=== PATIENT | female | born 1955 | race Caucasian/White ===

== ENCOUNTER 2016-12-14 07:19 | Day surgery (SDC) ==
[2016-12-14] MEDS ORDERED: LR 1,000 ML ONE (07:46)
[2016-12-14] MEDS ORDERED: MYLICON DROPS (DOSE) MISC ONE (10:19)
[2016-12-14] MEDS ORDERED: FENTANYL ONE (11:32)
[2016-12-14] MEDS ORDERED: DIPRIVAN 1% ONE (11:32)
[2016-12-14] MEDS ORDERED: DIPRIVAN 1% 50 ML ONE (11:32)
[2016-12-14 13:54] VITALS: BP 134/82
--- NOTE | 2016-12-14 15:25 | Diag Imaging Result Document ---
PROCEDURE NAME: BARIUM ENEMA - 12/14/2016 SINGLE CONTRAST BARIUM ENEMA: FINDINGS: Barium was administered retrogradely via gravity through balloon-tipped rectal catheter which was inserted by a female technologist. The colon is tortuous, particularly at the sigmoid colon and hepatic flexure regions. There is no stricture identified. There is no intraluminal filling defect identified. There is mild scattered diverticulosis. There is no constricting lesion identified. IMPRESSION: Tortuous colon, particularly at the sigmoid and hepatic flexure regions. Mild scattered diverticulosis. No other visible abnormality.
[2016-12-14] MEDS ORDERED: ZOFRAN ONE (15:32)
[2016-12-14] MEDS ORDERED: XYLOCAINE-MPF 2% ONE (15:32)
--- NOTE | 2016-12-20 03:50 | OPERATIVE NOTE ---
PROCEDURE DATE: 12/14/2016 REFERRING PHYSICIAN: Nikolas Carver MD. INDICATION FOR PROCEDURE: 1. Dysphagia. 2. Epigastric pain. 3. GERD. PROCEDURE PERFORMED: 1. Esophagogastroduodenoscopy with polypectomy. 2. Esophagogastroduodenoscopy with biopsy. CONSENT: Informed consent was obtained from the patient prior to the procedure. The risks, benefits, and alternatives were discussed. MEDICATION: The patient received monitored anesthesia care. PERFORMING PHYSICIAN: Angelia Harrison MD. ASSISTANTS: 1. [facility] 2. Carmela Chou RN. 3. Shilpa Gonzalez RN. 4. Dagmar Lopez CRNA. 5. Severo Castro MD (anesthesia). COMPLICATIONS: There were no complications. ESTIMATED BLOOD LOSS: Less than 1 mL. SPECIMENS REMOVED: 1. Duodenal polyp. 2. Gastric polyp. FINDINGS: After sedation was achieved, the upper endoscope was inserted to the 2nd portion of the duodenum. The hypopharynx appeared normal. The tubular esophagus appeared normal to the distal esophagus. There were no varices. However, there was old blood and an ulcer with a mildly restrictive Schatzki's ring at the GEJ. The GEJ was measured at 35 cm from the incisors. There was a hiatal hernia that spanned from 35-40 cm. In the gastric lumen, there was erosive gastritis. There were multiple polyps in the antrum, fundus, and body. There were at least 2 polyps snared and removed. The smaller polyps remained intact with no stigmata of bleeding. On retroflexed view, there were no gastric varices. The pylorus appeared endoscopically normal. In the duodenal bulb, there was a large duodenal polyp that was biopsied. The remaining mucosa appeared grossly normal. After the exam was complete, the lumen was decompressed and the scope was removed without incident. IMPRESSION: 1. Distal esophagitis. 2. Distal esophageal ulcer. 3. Schatzki's ring. 4. Hiatal hernia. 5. Erosive gastritis. 6. Gastric polyps. 7. Duodenal polyps. RECOMMENDATION: 1. Await biopsy results. 2. Continue Prilosec 40 mg twice a day as well as Pepcid Complete as needed for breakthrough. 3. We will add Carafate 1 g p.o. 4 times a day for 12 weeks. 4. We will have the patient return to clinic in 4-6 weeks. 5. We will proceed with a colonoscopy as previously scheduled.
--- NOTE | 2016-12-20 03:55 | OPERATIVE NOTE ---
PROCEDURE DATE: 12/14/2016 REFERRING PHYSICIAN: Nikolas Carver MD. INDICATION FOR THE PROCEDURE: History of colon polyps. PROCEDURE PERFORMED: Colonoscopy, incomplete, with polypectomy. CONSENT: Informed consent was obtained from the patient prior to the procedure. The risks, benefits, and alternatives were discussed. MEDICATION: The patient received monitored anesthesia care. PERFORMING PHYSICIAN: Angelia Harrison MD. ASSISTANTS: 1. [facility] 2. Carmela Chou RN. 3. Shilpa Gonzalez RN. 4. Dagmar Lopez CRNA. 5. Severo Castro MD (anesthesia). COMPLICATIONS: There were no complications. ESTIMATED BLOOD LOSS: Less than 1 mL. SPECIMENS REMOVED: Transverse colon polyps x2. FINDINGS: After the EGD was performed, the patient was repositioned. The pediatric colonoscope was inserted to the hepatic flexure. We were unable to advance the scope due to a redundant colon and looping. She has had multiple position changes and counterpressure applied without advancement of the scope. Since we were unable to advance the scope further, the scope was withdrawn slowly. Upon withdrawal, there were 2 transverse colon polyps that ranged in size from 5-10 and 10-12 mm. They were removed by snare cautery. In the transverse, descending, and sigmoid colon, there was diverticulosis. In the upper rectum, there were grade 2 internal hemorrhoids. On retroflexed view, there were large external hemorrhoids. After polypectomy was performed, the lumen was decompressed and the scope was removed without incident. IMPRESSION: 1. Incomplete colonoscopy due to looping and redundant bowel. 2. Two transverse colon polyps. 3. Diverticulosis. 4. Internal hemorrhoids. 5. External hemorrhoids. RECOMMENDATION: 1. Await biopsy results. 2. We will obtain a barium enema today. 3. She will need a repeat colonoscopy within the next year. I recommend using the standard endoscope, which is slightly stiffer, to help facilitate completion of the procedure. 4. We will have the patient return to clinic in 4-6 weeks to assess interval progress. 5. We will call her with the results of her barium enema.
== END 2016-12-14 14:00 | disposition home or self-care (01) ==
LOC: ENDO 07:19
PROVIDERS: ATTEND Internal Medicine Gastroenterology
DX: K31.7 Polyp of stomach and duodenum (principal); D12.3 Benign neoplasm of transverse colon; K64.4 Residual hemorrhoidal skin tags; K64.8 Other hemorrhoids; K57.90 Diverticulosis of intestine, part unspecified, without perforation or abscess without bleeding; R10.13 Epigastric pain; K21.9 Gastro-esophageal reflux disease without esophagitis; I10 Essential (primary) hypertension; E11.9 Type 2 diabetes mellitus without complications
CPT/HCPCS: 74270; 82948; 88305; 88312; J2405; J3010; J7120